=== PATIENT | male | born 1990 ===

== ENCOUNTER 2018-01-11 13:54 | Emergency (ER) | payer OTHER ==
[2018-01-11 14:44] VITALS: BP 118/66
--- NOTE | 2018-01-11 14:54 | UC ---
Skin Complaint HPI - HPI Summary HPI Summary: 27 y/o male presents to the urgent care c/o itchy rash in his RT upper arm for the past 10 days. 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 He thinks it is poison gianna since he had it before. At the beginning he had redness w/ some vesicles, but he has been scratching and rash has increased in size w/ mild swelling and warm to touch. He has not taking anything to alleviate symptoms. Pt denies fever,pain, HATCH, body aches, SOB , chest pain, abdominal pain, N/V/D. - History of Current Complaint Chief Complaint: UCRash Time Seen by Provider: 01/11/18 14:50 Stated Complaint: RASH Hx Obtained From: Patient Onset/Duration: Gradual Onset, Lasting Days - 10 days, Still Present, Worse Since - yesterday Skin Exposure Onset/Duration: Days Ago - 10 days Timing: Constant Onset Severity: Mild Current Severity: Moderate Pain Intensity: 0 Pain Scale Used: 0-10 Numeric Location: Discrete - RT upper arm Character: Swelling, Pruritus, Redness Aggravating Factor(s): Touch Alleviating Factor(s): Nothing Associated Signs & Symptoms: Positive: Rash. Negative: Nausea, Vomiting, Numbness, Fever, Chills, Cough, Drainage, Tenderness, Red Streaks Related History: Possible Reaction to: Environmental Exposure - Pt works in agriculture - Allergy/Home Medications Allergies/Adverse Reactions: Allergies Allergy/AdvReac Type Severity Reaction Status Date / Time No Known Allergies Allergy Unverified 01/11/18 14:44 Home Medications: Home Medications Tolterodine (NF) [Detrol (NF)] 1 mg PO 01/11/18 [History] Review of Systems Constitutional: Negative Skin: Rash - RT arm rash w/ a lot itching s/p exposure w/ plants Eyes: Negative ENT: Negative Respiratory: Negative Cardiovascular: Negative Gastrointestinal: Negative Genitourinary: Negative Motor: Negative Neurovascular: Negative Musculoskeletal: Negative Neurological: Negative Psychological: Negative Is Patient Immunocompromised?: No All Other Systems Reviewed And Are Negative: Yes PMH/Surg Hx/FS Hx/Imm Hx Previously Healthy: Yes Other Endocrine History: Lyme disease Other GI/ History: overreactive bladder - Surgical History Surgical History: Yes Surgery Procedure, Year, and Place: hernia repair - Family History Known Family History: Positive: Diabetes Family History: Glaucoma, lymphoma - Social History Occupation: Employed Full-time Lives: With Family Alcohol Use: Weekly Substance Use Type: None Smoking Status (MU): Never Smoked Tobacco - Immunization History Vaccination Up to Date: Yes Physical Exam - Summary Physical Exam Summary: Vital Signs Reviewed: Yes General: well developed, well nourished male sitting in the examining table w/o any apparent distress Eye Exam: Normal Eyes: Positive: Conjunctiva Clear - PERRLA, EOMI, fundi grossly normal ENT: Positive: Normal ENT inspection, Hearing grossly normal, Pharynx normal, TMs normal Neck: Positive: Supple, Nontender, No Lymphadenopathy Respiratory: Positive: Chest non-tender, Lungs clear, Normal breath sounds, No respiratory distress Cardiovascular: Positive: RRR, No Murmur, Pulses Normal, Brisk Capillary Refill Abdomen Description: Positive: Nontender, No Organomegaly, Soft. Negative: CVA Tenderness (R), CVA Tenderness (L) Bowel Sounds: Positive: Present Musculoskeletal: Positive: Strength Intact, ROM Intact, No Edema Neurological: Positive: Alert, Muscle Tone Normal Psychological Exam: Normal Skin: Positive: rashes - Positive RT arm w/ erythematous maculopapular eruption w/ linear vesicles and surrounding erythema with indistinct borders about 4.0cm X5.0cm in size. w/ signs of excoriation. warm to touch and mild induration in some parts, no purulent drainage observed. Non tender to palpation. Triage Information Reviewed: Yes Vital Signs: Initial Vital Signs Temp 98.7 F 01/11/18 14:36 Pulse 65 01/11/18 14:36 Resp 18 01/11/18 14:36 BP 118/66 01/11/18 14:36 Pulse Ox 100 01/11/18 14:36 Course/Dx - Course Course Of Treatment: 27 y/o male presents to the urgent care c/o itchy rash in his RT upper arm for the past 10 days. 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 He thinks it is poison gianna since he had it before. At the beginning he had redness w/ some vesicles, but he has been scratching and rash has increased in size w/ mild swelling and warm to touch. He has not taking anything to alleviate symptoms. Pt denies fever,pain, HATCH, body aches, SOB, chest pain, abdominal pain, N/V/D.Hx obtained. Pt w/ erythematous maculo papular and vsicular eruption spreading in the RT upper arm w/ some indistinct borders about 4.0 x 5.0cm in size. Pt Probably w/ poison [place] rash since he works w/ plants. However rash is now co-infected and developing cellulitis. Pt Rx Prednisone PO, Benadryl PO and triamcinolone topical cream to alleviate symptoms. Pt also Rx Keflex PO for cellulitis and advised if redness and swelling doubles in size beyond what was demarcated after 48 hrs of taking antibiotic and fever develops to go to the ER immediately. Also advised if not improvement of symptoms to f/u w/ his PCP or Dermatoligist Dr Clifton for further management. Pt understood and agreed with D/C instructions. - Differential Diagnoses - Skin Complaint Differential Diagnoses: Allergic Reaction, Cellulitis, Contact Dermatitis, Local Allergic Reaction, Poison Gianna, Poison [place], Urticaria - Diagnoses Provider Diagnoses: 1- unspecified rash. 2-RT arm cellulitis Discharge - Discharge Plan Condition: Stable Disposition: HOME Prescriptions: Cephalexin CAP* [Keflex CAP*] 500 mg PO QID #28 cap diPHENhydraMINE PO* [Benadryl PO 25 MG TAB*] 25 mg PO Q6H PRN #20 tab PRN Reason: pruritus predniSONE TAB* [Deltasone TAB*] 20 mg PO DAILY #11 tab Triamcinolone 0.1% CREAM (NF) [Kenalog 0.1% Cream (NF)] 1 applic .SEE ORDER BID #1 tube Patient Education Materials: Cellulitis (ED), Poison Gianna (ED) Referrals: Wild Pollard MD [Primary Care Provider] - 3 Days Val Clifton [Medical Doctor] - If Needed Additional Instructions: 1-Please take full course of Antibiotic to avoid resistance. 2- TAke Prednisone PO , Bendaryl PO and apply Triamcinolone topical cream as directed to alleviate symptoms 3- If redness and swelling doubles in size after 48 hrs of taking antibiotic and fever develops please go to the ER immediately for further management 4-Please F/u with your PCP or Inventory Associate And Driver DR Clifton in 3 days if not improvement of symptoms for further evaluation and treatment.
== END 2018-01-11 15:25 | disposition home or self-care (01) ==
LOC: UCEAST 13:54
DX: L03.113 Cellulitis of right upper limb (principal); R21 Rash and other nonspecific skin eruption
CPT/HCPCS: 99202; G0463